=== PATIENT | female | born 1945 | race Two or more races ===

== ENCOUNTER → 2024-10-29 | Outpatient (CLI) | payer MEDICARE, MEDICAID, SELFPAY ==
--- NOTE | 2024-10-29 09:00 | XR_ITS ---
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 FINDINGS: Moderate stool in the colon Small bowel ileus No free air IMPRESSION: Moderate stool throughout the colon
== END | disposition home or self-care (01) ==
PROVIDERS: PCP Internal Medicine
DX: K59.00 Constipation, unspecified (principal)
CPT/HCPCS: 74018

== ENCOUNTER → 2024-11-07 | Outpatient (CLI) | payer MEDICARE, MEDICAID, SELFPAY ==
--- NOTE | 2024-11-07 | XR_ITS ---
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 FINDINGS: Significant stool throughout the colon IMPRESSION: Significant stool throughout the colon
--- NOTE | 2024-11-07 09:00 | XR_ITS ---
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 FINDINGS: Significant stool throughout the colon IMPRESSION: Significant stool throughout the colon
== END | disposition home or self-care (01) ==
LOC: CDIM 09:44
PROVIDERS: PCP Internal Medicine; Referring Provider Student in an Organized Health Care Education/Training Program; Visit Provider Student in an Organized Health Care Education/Training Program
DX: K59.00 Constipation, unspecified (principal)
CPT/HCPCS: 74018; 74270